=== PATIENT | male | born 1950 | race Caucasian/White ===

== ENCOUNTER 2017-10-20 12:48 | Inpatient (IN) | payer OTHER ==
[~2017-10-20] VITALS: Ht 172.7 cm; Wt 72.6 kg
[~2017-10-20 12:48] MED LIST: DAYPRO600 MG PO; HYOSCYAMINE0.375 M1 PO; NORCO 10-325 T1 EACH PO; PRINIVIL20 MG PO
[2017-10-20 13:42] LABS: HEMATOCRIT 42.6 % (42.0-52.0); HEMOGLOBIN 14.3 gm/dL (14.0-18.0); MCHC 33.4 g/dL (28.0-37.0); MCV 95.8 fL (80.0-100.0); MPV 7.9 fl. (7.2-11.1); RBC 4.45 mil/uL (4.50-6.00)
[2017-10-20 13:52] LABS: PROTIME 10.1 Seconds (9.20-11.50)
[2017-10-20 13:53] LABS: CALCIUM 8.5 mg/dL (8.5-10.1); POTASSIUM 3.8 mmol/L (3.5-5.1)
[2017-10-20 13:58] LABS: ALBUMIN 3.5 g/dL (3.4-5.0); TOTAL BILIRUBIN 0.4 mg/dL (<0.1-1.0)
[2017-10-20 15:05] VITALS: BP 140/81
[2017-10-20 17:49] VITALS: BP 113/78
[2017-10-20 20:00] VITALS: BP 125/72
[2017-10-21] VITALS (7 sets, daily range): BP systolic 128–144; BP diastolic 68–85
[2017-10-21 04:25] LABS: HEMOGLOBIN 12.9 gm/dL (14.0-18.0)
[2017-10-21 05:24] LABS: URINE BILIRUBIN NEGATIVE (Negative); URINE BLOOD NEGATIVE (Negative); URINE CLARITY CLEAR; URINE COLOR YELLOW; URINE GLUCOSE-RANDOM NEGATIVE (Negative); URINE KETONES NEGATIVE (Negative); URINE LEUKOCYTES-REFLEX NEGATIVE (Negative); URINE NITRITE-REFLEX NEGATIVE (Negative); URINE PROTEIN NEGATIVE (Negative); URINE SPECIFIC GRAVITY 1.015 (1.005-1.030); URINE UROBILINOGEN 0.2 E.U./dl (0.2-1.0)
[2017-10-21] MEDS ORDERED: PERCOCET PO (14:06)
[2017-10-21] MEDS ORDERED: XARELTO10 MG PO (14:06)
[2017-10-21] MEDS ORDERED: CELEBREX 200 M200 M1 PO (14:12)
[2017-10-21] MEDS ORDERED: FAMOTIDINE 20 M20 MG PO (14:13)
--- NOTE | 2017-10-21 14:16 | EKG ---
[place] [address] ELECTROCARDIOGRAM REPORT Name: RUSTY MEDLEY Room: [address] ADM IN M.R.#: [id number] Admission: 10/20/17 Attend Phys: Jaida Doe Discharge: Date of : 50 Report #: [id number] THIS REPORT FOR: //name// [facility] Test Date: 2017-10-20 Test Time: 13:18:07 Pat Name: RUSTY MEDLEY Department: Room: [facility] Gender: M Consultant Internship: LARA : 1950 Requested By: Mac Mustafa Order Number: [id number] Geovani MD: Serafin Jones Measurements Intervals [place] Rate: 95 P: 72 LA: 156 QRS: 19 QRSD: 92 T: 47 QT: 353 QTc: 444 Interpretive Statements Sinus rhythm No previous ECG available for comparison Electronically Signed On 10-21-2017 14:16:20 WORM PACKER by Serafin Jones [email or web address] <ELECTRONICALLY SIGNED> By: Serafin Jones MD, [facility] 10/21/17 1416 1318 1318 Serafin Jones MD, FACC /EPI
--- NOTE | 2017-10-24 12:04 | S ---
[place] [address] SURGICAL PATH RPT PROCEDURE Name: GALINDOKRISTIAN NGUYEN Room: [address] IN M.R.#: [id number] Admission: 10/20/17 Date of : 50 Discharge: 10/21/17 Report #: [id number] Path Case #: [id number] PATHOLOGY REPORT COLLECTION DATE: 10/20/2017 RECEIVED DATE: 10/21/2017 SUBMITTING PHYS: Dr. Mac Mustafa II OTHER PHYS: Dr. Chele Galarza SPECIMEN(S) RECEIVED: A.Left femoral head and tissue * * * * * * * * * * * * FINAL DIAGNOSIS: Left femoral head and tissue: - Benign femoral head / neck tissues including hematopoietic elements with osteoporosis and evidence of fracture including fresh stromal hemorrhage. ([facility]; 10/24/2017) PATHOLOGIST: Juan M Damian M.D. REPORT ELECTRONICALLY SIGNED BY: Juan M Damian M.D. DATE/TIME: 10/24/2017 12:04 * * * * * * * * * * * * GROSS PATHOLOGY: Received in formalin labeled "Kristian Linda Feliz femoral head and tissue," is a femoral head measuring 5.2 x 5.2 x 4.8 cm in greatest dimensions and separately submitted femoral neck measuring 4.4 x 3.2 x 1.7 cm. The articular surface is pale hurst and smooth in appearance. Sectioning reveals a light hurst marrow space, with the distal most aspect hemorrhagic in appearance, consistent with a fracture site. Soft tissue is not grossly identified within the specimen container. Linux Security Administrator tissue from the fracture site is submitted in cassette A1, following decalcification. ([facility]; 10/21/2017) CLINICAL HISTORY: Left hip fracture INITIAL CPT CODE(S): A; 03882, 41725 Professional services [place] [address] SURGICAL PATH RPT PROCEDURE Name: KRISTIAN FELIZ Room: [address] IN ..#: [id number] Admission: 10/20/17 Date of : 50 Discharge: 10/21/17 Report #: [id number] Path Case #: [id number] [facility] at [address] [place] [address], [facility] [address], [place] [address]. [facility] [place] [address] PHONE: [phone] DIRECTOR: Camilo Redd M.D. * * * END OF REPORT * * *
--- NOTE | 2017-10-25 11:23 | OP ---
[facility] [address] [place] [address] OPERATIVE REPORT Name: RUSTY MEDLEY Room: [address] IN M.R.#: [id number] Admission: 10/20/17 Attend Phys: Jaida Doe Discharge: 10/21/17 Date of : 50 Report #: [id number] THIS REPORT FOR: //name// CC: Junior Gaston DATE OF SERVICE: 10/20/2017 PREOPERATIVE DIAGNOSIS: Left hip subcapital hip fracture with displacement. POSTOPERATIVE DIAGNOSIS: Left hip subcapital hip fracture with displacement. PROCEDURE: Left estefani hip arthroplasty. SURGEON: Mac Mustafa II, DO. DEATH CLEARANCE COORDINATOR: MARISA Lott. ANESTHESIA: Per operative record. ESTIMATED BLOOD LOSS: 150 mL. ANTIBIOTICS: Per operative record. DRAINS: None. COMPLICATIONS: None. CONDITION: The patient is stable to recovery room. IMPLANTS USED: Schneider and Nephew bipolar hemiarthroplasty. See chart notes. DESCRIPTION OF PROCEDURE: The patient was taken to the operative suite and placed supine on the operating table. After appropriate anesthesia, the patient's left hip was placed on the pegboard facing superiorly. All bony prominences were well padded. A sterile prep and drape was performed. Surgery begun by an anterolateral incision over the greater trochanter of the left hip, carried down to the subcutaneous tissues. The tensor fascia was then split in line with its fibers in both proximal and distal directions. The greater trochanter was evaluated and shown to have intact medius and minimus. This was resected utilizing cautery down to the capsule. A T capsulotomy was then performed and carried down to the neck fracture. The alignment guide was then placed on the neck and appropriate cut was made utilizing reciprocating saw. The neck fracture portion was removed. There was shown to be slight extension into the posterior calcar with the fracture, approximately 4 [place] [address] OPERATIVE REPORT Name: RUSTY MEDLEY Room: [address]#: [id number] Admission: 10/20/17 Attend Phys: Jaida Doe Discharge: 10/21/17 Date of : 50 Report #: [id number] calcar point. The head was then removed utilizing a corkscrew, sized to appropriate size and this was trialed, which showed an excellent fit. The stem was then broached in appropriate fashion to the appropriate size, which showed an excellent fit. Neck lengths were then trialed, which showed to have an excellent fit with the standard offset neck and -3 head. This trial was then selected and malleted into position and then once again reduced. Leg length was checked and it showed an excellent leg length with negative dislocation of the hip upon shuck testing. Final irrigation was then performed of the wound. The T capsulotomy was then closed utilizing a #1 Vicryl in bxxikh-uu-juhxj fashion. The gluteus medius and minimus were reattached to the trochanter utilizing a #5 FiberWire with bone-seeking bites of the stitch in hytnap-hr-ilsyu fashion. Tensor fascia was then closed with #1 Vicryl in a running fashion. Subcuticular layer was then closed utilizing Vicryl and running Monocryl. Dermabond and dressing were applied. The patient transported to the recovery room in stable condition. Counts were correct throughout the procedure. <ELECTRONICALLY SIGNED> By: Mac Mustafa II, DO 10/25/17 1123 0843 0916Mac Mustafa II, DO /nt
[2018-02-01] MEDS ORDERED: ASPIR 8181 MG PO (13:00)
== END 2017-10-21 14:30 | disposition home health service (06) | DRG 470 ==
LOC: M.ORTHSURG 12:48 → M.TBA 12:48 → M.PRE 15:02 → M.ORTHSURG 17:39
PROVIDERS: Orthopaedic Surgery; ADMIT Internal Medicine
PROC: 0SRS0JZ Replacement of Left Hip Joint, Femoral Surface with Synthetic Substitute, Open Approach (ICD-10-PCS; principal; 2017-10-20)
DX: S72.012A Unspecified intracapsular fracture of left femur, initial encounter for closed fracture (principal); D62 Acute posthemorrhagic anemia; I10 Essential (primary) hypertension; W10.8XXA Fall (on) (from) other stairs and steps, initial encounter; Y93.89 Activity, other specified; Y92.89 Other specified places as the place of occurrence of the external cause; Y99.8 Other external cause status; Z87.891 Personal history of nicotine dependence; Z79.899 Other long term (current) drug therapy

== ENCOUNTER → 2018-01-13 | Outpatient (CLI) | payer OTHER ==
[~2018-01-13] MED LIST changes: +ASPIR 8181 MG PO; +CELEBREX 200 M200 M1 PO; +FAMOTIDINE 20 M20 MG PO; +OXYCODONE HCL 55 MG PO; +PERCOCET PO; +XARELTO10 MG PO
== END ==
LOC: M.MRI 13:04
DX: S83.242A Other tear of medial meniscus, current injury, left knee, initial encounter (principal); S83.282A Other tear of lateral meniscus, current injury, left knee, initial encounter; M17.12 Unilateral primary osteoarthritis, left knee; M71.22 Synovial cyst of popliteal space [Baker], left knee; M25.462 Effusion, left knee; X58.XXXA Exposure to other specified factors, initial encounter; Y93.89 Activity, other specified; Y92.89 Other specified places as the place of occurrence of the external cause; Y99.8 Other external cause status

== ENCOUNTER 2018-02-21 08:38 | Inpatient (IN) | payer OTHER ==
[2018-02-09 09:33] LABS: HEMATOCRIT 41.9 % (42.0-52.0); HEMOGLOBIN 13.9 gm/dL (14.0-18.0); MCH 31.6 pg (26.0-34.0); MCHC 33.1 g/dL (28.0-37.0); MCV 95.3 fL (80.0-100.0); MPV 7.5 fl. (7.2-11.1); RBC 4.39 mil/uL (4.50-6.00); RDW-CV 15.4 % (10.5-14.5); WBC 7.1 thou/uL (4.0-11.0)
[2018-02-09 09:36] LABS: PROTIME 9.7 Seconds (9.20-11.50)
[2018-02-09 09:48] LABS: ALBUMIN 3.8 g/dL (3.4-5.0); CALCIUM 8.5 mg/dL (8.5-10.1); POTASSIUM 4.2 mmol/L (3.5-5.1); TOTAL BILIRUBIN 0.3 mg/dL (<0.1-1.0); TOTAL PROTEIN 7.7 g/dL (6.4-8.2)
[2018-02-09 10:14] LABS: URINE BILIRUBIN NEGATIVE (Negative); URINE BLOOD NEGATIVE (Negative); URINE CLARITY CLEAR; URINE COLOR YELLOW; URINE GLUCOSE-RANDOM NEGATIVE (Negative); URINE KETONES NEGATIVE (Negative); URINE LEUKOCYTES-REFLEX NEGATIVE (Negative); URINE NITRITE-REFLEX NEGATIVE (Negative); URINE PROTEIN NEGATIVE (Negative); URINE SPECIFIC GRAVITY <= 1.005 (1.005-1.030); URINE UROBILINOGEN 0.2 E.U./dl (0.2-1.0)
[~2018-02-21] VITALS: Ht 172.7 cm; Wt 72.6 kg
[~2018-02-21 08:38] MED LIST changes: -OXYCODONE HCL 55 MG PO
[2018-02-21 09:18] VITALS: BP 106/56
[2018-02-21 14:00] VITALS: BP 142/80
[2018-02-21 16:12] VITALS: BP 139/77
[2018-02-21 20:10] VITALS: BP 142/89
[2018-02-22 00:51] VITALS: BP 143/86
[2018-02-22 04:44] LABS: HEMATOCRIT 36.2 % (42.0-52.0); HEMOGLOBIN 12.2 gm/dL (14.0-18.0)
[2018-02-22 09:26] VITALS: BP 145/87
[2018-02-22 11:34] VITALS: BP 145/87
[2018-02-22] MEDS ORDERED: OXYCODONE HCL 55 MG PO (11:45)
[2018-02-22 15:43] VITALS: BP 145/87
--- NOTE | 2018-03-01 09:58 | OP ---
[facility] [address] [place] [address] OPERATIVE REPORT Name: RUSTY MEDLEY Room: [address] IN M.R.#: [id number] Admission: 02/21/18 Attend Phys: Jaida Doe Discharge: 02/22/18 Date of : 50 Report #: [id number] THIS REPORT FOR: //name// CC: Junior Gaston DATE OF SERVICE: 02/21/2018 PREOPERATIVE DIAGNOSIS: Left knee osteoarthritis. POSTOPERATIVE DIAGNOSIS: Left knee osteoarthritis. PROCEDURE: Left total knee arthroplasty. SURGEON: Mac Mustafa II, DO. COVERER: MARISA Lott. ANESTHESIA: General endotracheal. ESTIMATED BLOOD LOSS: 50 mL. ANTIBIOTICS: Ancef preoperatively. DRAINS: Medium Hemovac. COMPLICATIONS: None. CONDITION: The patient is stable to recovery room. IMPLANTS: Listed in operative record and progress note. BRIEF HISTORY: The patient was seen in the preoperative area. Preoperative H and P was performed. Site was marked, questions were answered. Risks and benefits were discussed with the patient in detail about the surgery. The patient wished to proceed, assumed all risks. DESCRIPTION OF PROCEDURE: The patient was taken to the operative suite and placed supine on the operating table and given appropriate anesthesia. The patient had well-padded tourniquet applied to the upper thigh, was inflated to 300 mmHg after gravity exsanguination. The operative knee was sterilely prepped and draped. Surgery began by midline incision, it was carried down to subcutaneous tissues. A medial parapatellar arthrotomy was performed, and carried down to bone. The patella was then everted and excess soft tissue removed around the femur. The femoral cutting block was then applied to check [address] [address] OPERATIVE REPORT Name: RUSTY MEDLEY Room: [address] IN [facility].#: [id number] Admission: 02/21/18 Attend Phys: Jaida Doe Discharge: 02/22/18 Date of : 50 Report #: [id number] for the drop ninfa for rotational alignment, pinned in appropriate position and appropriate cuts were made. A 4-in-1 cutting block was then applied, checked for rotational alignment, pinned into appropriate position. Appropriate cut was made. The tibia was then exposed. Excess meniscus was removed. Retractor was placed along the collateral ligaments. Tibial cutting block was then applied, pinned in appropriate position, checked with a drop ninfa for rotational alignment and slope and appropriate cut was made. Tibial bone was removed. Tibial base plate was then applied, checked for rotation alignment with a drop ninfa and pinned in appropriate position. Femur was then applied and box cut was reamed. This was then trialed with the appropriate spacer which showed excellent fit and fill and excellent stability of the knee through all range of motion. The patella was then reamed in appropriate fashion and sized to appropriate size, 3 peg holes were drilled. It was then trialed and found to have excellent flexion, extension and excellent tracking of the patella within the groove. These trials were removed. The tibia was punched in appropriate fashion. Bony ends were cleansed with Pulsavac irrigation and cement was mixed and applied to the final implants. These were malleted in position, held the knee in extension and compressed to allow cement to cure. After cured, excess was removed utilizing Datto and osteotome. The wound was then copiously irrigated and the final spacer was malleted in position. The tourniquet was deflated. Hemostasis was maintained with electrocautery. Pain cocktail was injected, PRP gel was sprayed throughout the internal aspects of the knee. Medium Hemovac drain was then applied. Capsule was closed with 2 FiberWire and 1 Vicryl in bytypz-rk-wgmma fashion, skin was closed with a 2-0 Vicryl and running 3-0 Monocryl. Dermabond and sterile dressing was applied. Juan wrap and PolarCare applied. The patient transported to recovery room in stable condition. Counts were correct throughout the procedure. <ELECTRONICALLY SIGNED> By: Mac Mustafa II, DO 03/01/18 0958 0757 0923Mac Mustafa II, DO /nt
--- NOTE | 2018-07-04 11:47 | PATH ---
[address] [address] PATHOLOGY RPT PROCEDURE Name: KRISTIAN FELIZ Room: [address] IN M.R.#: [id number] Admission: 02/21/18 Date of : 50 Discharge: 02/22/18 Report #: [id number] Path Case #: [id number] [facility] Accession Number: [id number] . 01 Material submitted: . LEFT KNEE BONE AND TISSUE . 01 Clinical history: . LEFT KNEE DJD . 02 Diagnosis: Bone and soft tissue, "left knee bone and tissue," joint resection: - Degeneration of cartilage consistent with degenerative joint disease. (SHA:mgenrique; 02/27/18) QRQ/02/27/2018 . 02 Electronically signed: . Andrew Garza MD, Pathologist NPI- [id number] . 01 Gross description: . The specimen is received in formalin, labeled " Kristian Feliz and left knee bone and tissue ", are multiple fragments of yellow bone with recognizable portions of the tibia plateau, patella, meniscus (attached and detached 4.2 x 0.7 x 0.5 cm) and rubbery elizabeth-white soft tissue (6.0 x 4.5 x 2.0 cm). The specimen measures 12.0 x 8.5 x 2.5 in aggregate. Few fragments show an irregular articular cartilage with eburnation. Peripheral osteophytes are present. Automatic Spinning Lathe Setter sections are submitted in A1 after decalcification. SHS/SHS . 02 Pathologist provided ICD-10: M17.12 . 02 CPT . 662337, 244144 Specimen Comment: A duplicate report has been generated due to demographic updates. Performed at: [address], [place] [id number] MD Geraldo Perez MD Phone: [phone] Performed at: 02 [facility] [address], [place], [place] [id number] MD Juan M Damian MD Phone: [phone]
== END 2018-02-22 17:30 | disposition home health service (06) | DRG 470 ==
LOC: M.TBA 08:38 → M.ORTHSURG 08:38 → M.PRE 08:52 → M.ORTHSURG 13:43 → M.PRE 14:40 → M.ORTHSURG 02-22 17:30
PROVIDERS: Orthopaedic Surgery; ADMIT Internal Medicine
PROC: 0SRD0J9 Replacement of Left Knee Joint with Synthetic Substitute, Cemented, Open Approach (ICD-10-PCS; principal; 2018-02-21)
DX: M17.12 Unilateral primary osteoarthritis, left knee (principal); I10 Essential (primary) hypertension; K58.9 Irritable bowel syndrome, unspecified; K21.9 Gastro-esophageal reflux disease without esophagitis; J44.9 Chronic obstructive pulmonary disease, unspecified; Z87.891 Personal history of nicotine dependence; Z79.899 Other long term (current) drug therapy